=== PATIENT | male | born 1985 | race Caucasian/White ===

== ENCOUNTER 2024-10-09 14:05 | Emergency (ER) | payer OTHER, SELFPAY ==
[2024-10-09 15:34] LABS: ALT (SGPT) 46 U/L (8-55); AST (SGOT) 28 U/L (5-34); Albumin 3.7 g/dL (3.5-5.0); Alkaline Phosphatase 86 U/L (40-110); Anion Gap 13 mmol/L (10-20); BUN (Urea Nitrogen) 15 mg/dL (8.9-20.6); Band 18 % (5-11); Bilirubin, Total 0.5 mg/dL (0.2-1.2); Calc. Creatinine Clearance 0 mL/min (70-130); Calcium 9.1 mg/dL (7.8-10.44); Carbon Dioxide 23 mmol/L (22-29); Chloride 104 mmol/L (98-107); Eosinophils 1 % (0-10); Estimated GFR 96; Globulin 3.4 g/dL (2.4-3.5); Glucose 104 mg/dL (70-105); Hematocrit 42.1 % (42.0-52.0); Hemoglobin 13.4 g/dL (14.0-18.0); Hypochromia SLIGHT = 6-15 cells (100X) (0-5/hpf); Lymphocytes 7 % (21-51); MDiff Complete? YES; Mean Corpuscular HGB CONC 31.8 g/dL (32.0-36.0); Mean Corpuscular Hemoglobin 28.9 pg (27.0-31.0); Mean Corpuscular Volume 90.9 fl (78.0-98.0); Mean Platelet Volume 7.5 fL (7.4-10.4); Monocytes 12 % (0-10); Neutrophil 61 % (42-75); Platelet Adequacy Comment Appears Adequate; Platelet Count 196 10x3/uL (130-400); Potassium 3.6 mmol/L (3.5-5.1); Protein, Total 7.1 g/dL (6.0-8.3); RBC Distribution Width 12.5 % (11.5-14.5); Red Blood Cell (RBC) Count 4.63 mill/uL (4.70-6.10); Sodium 136 mmol/L (136-145); White Blood Cell (WBC) Count 8.1 10x3/uL (4.8-10.8)
[2024-10-09] MEDS ORDERED: Morphine 2 MG/ML VIAL ONE (15:52)
[2024-10-09] MEDS ORDERED: Ondansetron PF 4 MG/2 ML Vial ONE (15:52)
[2024-10-09] MEDS ORDERED: Morphine 4 MG/ML VIAL ONE ×2 (15:52→18:49)
[2024-10-09] MEDS ORDERED: Sodium Chloride 0.9% 2,000 ML ONE (17:40)
[2024-10-09] MEDS ORDERED: Sulfameth/Trimethoprim DS 800-160mg TAB ONE (17:40)
[2024-10-09] MEDS ORDERED: Sodium Chloride 0.9% 100 ML ONE ×2 (17:40→20:31)
[2024-10-09] MEDS ORDERED: cefTRIAXone (ROCEPHIN) 2 GM VIAL ONE (17:40)
[2024-10-09] MEDS ORDERED: Acetaminophen 325 MG TAB ONE (18:49)
[2024-10-09] MEDS ORDERED: Metoclopramide HCl 10 MG (2 mL) VIAL ONE (18:49)
[2024-10-09] MEDS ORDERED: Vancomycin HCl 500 MG VIAL ONE (19:11)
[2024-10-09] MEDS ORDERED: Vancomycin 1 GM VIAL ONE (19:11)
[2024-10-09] MEDS ORDERED: Meropenem 1 GM VIAL ONE (20:31)
== END 2024-10-09 22:29 | disposition short-term general hospital (02) ==
LOC: MADERS 14:05
DX: M00.9 Pyogenic arthritis, unspecified (principal); A41.9 Sepsis, unspecified organism
CPT/HCPCS: 80053; 83605; 85025; 86140; 87040; 87070; 87077; 87186; 87205; 96361; 96365; 96366; 96367; 96375; 96376; J0696; J2185; J2272; J2405; J2765; J3370; J7030